=== PATIENT | male | born 1965 | race Caucasian/White ===

== ENCOUNTER 2016-11-25 11:37 | Observation (INO) | payer OTHER ==
--- NOTE | ~2016-11-25 | CR72 ---
[facility] A Service of [facility] RADIOLOGY TEXT RESULTS PATIENT: CANDICE TOVAR LOCATION: [facility] [id number] : 63 UNIT #: [id number] AGE: [address]: Shonna Puckett MD SEX: M ORDER DR: [id number] [facility] [address] [facility]. [place], [place] [address] [id number] MR#: [id number] Acc #: [id number] NAME: CANDICE TOVAR : 1965 SEX: M STUDY DATE/TIME: 11/25/2016 UNIT: [facility] ROOM: STUDY DESCRIPTION: CR Chest Single View Portable Attending Physician: Yair Benitez M.D. Ordering Physician: Ale Ha M.D. Primary Care Physician: [facility] MEDICAL IMAGING REPORT This report is preliminary unless electronic signature is present EXAM Chest portable 11/25/2016 1246 hours HISTORY Patient complains of shortness of air, lightheadedness, chest and left arm pain today. COMPARISON 10/31/2014 FINDINGS Single portable upright view demonstrates median sternotomy and CABG change. The heart size is within normal limits. There is a stable mildly tortuous aorta. Pulmonary vascularity is normal. The lungs are clear and there are no effusions. IMPRESSION No acute cardiopulmonary findings. Dictated by... Kiersten Henry M.D. THIS IS AN ELECTRONICALLY VERIFIED REPORT Kiersten Henry M.D. at 11/25/2016 2:30 PM Jack TD: 11/25/2016 14:05 JOB #: [id number] MEDICAL IMAGING REPORT Page 1 of 1 COPY
--- NOTE | ~2016-11-25 | HP ---
Unit #: [id number] #: [id number] Patient: CANDICE TOVAR [id number] [facility] [place]. [address] [place], [place] [address] [id number] I MR#: [id number] NAME: CANDICE TOVAR ROOM: 73509 Age: 51 Sex: M Admission Date: 11/25/2016 : 1965 Attending Physician: Shonna Puckett M.D. [facility] HISTORY AND PHYSICAL HISTORY OF PRESENT ILLNESS This is a 51-year-old white male who has a history of having an anterior wall DC back in 2012 and had a three-vessel CABG done at [facility]. He is also diabetic, hyperlipidemic, mildly obese, who came to the hospital today with complaints of an onset of pain in his neck, down into the left shoulder and down the left arm and also in the left upper scapular/back region. He said this is the same type of pain he had four years ago when he had his heart attack. He said he got a little short of breath and dizzy and diaphoretic. He sat down for a while. The pain was waxing and waning for a while and then he drove himself to the hospital. He had received an aspirin and nitroglycerin paste and his symptoms have eased off. His blood pressure was 115/69, heart rate 97, respirations 16. He is afebrile. His EKG shows some inferior Q waves, poor R-wave progression, nothing acute. His chest x-ray did not show anything acute. Patient will be admitted for further evaluation and workup. He denies any radiation into the substernal chest wall. He has not had any abdominal pain. No nausea, vomiting or diarrhea. No cough, fever or chills. He recently went to see his PCP last week and was doing fairly well. PAST MEDICAL HISTORY 1. Coronary artery disease, previous coronary artery bypass graft in 2012, had an anterior wall DC. 2. Diabetes mellitus type 2. 3. Hyperlipidemia. 4. Peripheral neuropathy. 5. Right fifth toe removed 10/2014 secondary to a diabetic wound. 6. Obesity. Weight is 254 pounds with a BMI of 33. 7. Nonsmoker. PAST SURGICAL HISTORY 1. Fifth toe removed back in 10/2014. 2. Three-vessel coronary artery bypass graft in 2012. HOME MEDICATIONS They are listed but dosage and frequency unavailable. 1. Glipizide. 2. Metformin. 3. Invokana. 4. Aspirin. 5. Gabapentin. ALLERGIES. Unit #: [id number] #: [id number] Patient: CANDICE TOVAR No known drug allergies. SOCIAL HISTORY Patient has been a lifelong nonsmoker. No alcohol or illicit drug abuse. FAMILY HISTORY His mother had an DC and coronary artery bypass graft and at 83. Father of other medical issues. An older sister has had three MIs and had coronary artery bypass graft. REVIEW OF SYSTEMS CONSTITUTIONAL: Denies fever or chills. No recent weight gain or weight loss. HEENT: Denies headache. Complained of some dizziness before arrival. Denies paroxysmal nocturnal dyspnea or orthopnea. PULMONARY: Denies cough, had some slight shortness of breath with the neck and shoulder pain. HEART: S1, S2. Regular rate and rhythm. No clicks, murmurs or rubs. LUNGS: Bilateral clear throughout. Slightly diminished. ABDOMEN: Obese, soft, nontender. EXTREMITIES: Pedal pulses are palpable. No pedal edema. DIAGNOSTIC STUDIES LABORATORY DATA: Glucose is 217, BUN 27, creatinine 2.0, eGFR is 37.3, sodium 135, potassium 3.8 and chloride 101, CO2 24, calcium is 10.3, total protein 7.2, albumin 3.7, total bilirubin is 1.2, AST is 16, ALT 10 and alkaline phosphatase is 58. WBC 5.9, hemoglobin 11.1, hematocrit 33.9 and platelets 191. Initial cardiac enzymes: CK-MB is 1.1, troponin less than 0.05. IMAGING: His chest x-ray preliminary report no active disease. CARDIOVASCULAR: EKG shows sinus tachycardia, heart rate is 104 beats per minute, poor R-wave progression, inferior Q waves, low voltage in inferior leads. IMPRESSION 1. Neck, left shoulder and left arm pain equivocal to unstable angina. 2. History of coronary artery disease, three vessel coronary artery bypass graft in 2012. 3. Diabetes mellitus type 2. 4. Hyperlipidemia. 5. Peripheral neuropathy. 6. 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 7. Chronic kidney disease. 8. Obesity, 254 pounds with a body mass index of 33. 9. Nonsmoker. PLAN 1. Continue to monitor cardiac enzymes and EKG. If they remain negative, may likely proceed with a Lexiscan Cardiolite stress test. Because of his chronic kidney disease his creatinine is now 2.0. If his cardiac enzymes are positive and/or if he continues to have further chest pain may need another heart catheterization. Would discuss with the patient risks and benefits at the time. Will keep the patient n.p.o. in the morning for possible testing. On exam there do not appear to be any signs or symptom of acute congestive heart failure. Unit #: [id number] #: [id number] Patient: CANDICE TOVAR 2. Continue patient on aspirin, nitroglycerin paste, add therapeutic Lovenox and a small dose of beta ant. 3. Discussed with the patient why he is not on a beta ant. He is not sure and also it may be because of making him hypotensive. 4. Will obtain a lipoid profile and TSH and evaluate. 5. The patient will be on Accu-Cheks a.c. and h.s. with low dose sliding scale. 6. Further recommendations pending per Dr. Puckett. Dictated by Lanie Coreas A.P.R.N. for Eric Baer/ivette TD: 11/25/2016 17:36 JOB #: [id number] HISTORY AND PHYSICAL Page 1 of 1 X Lanie Coreas APRN HISTORY AND PHYSICAL
--- NOTE | ~2016-11-25 | ST ---
Unit #: [id number] #: [id number] Patient: CANDICE TOVAR [id number] [facility]. [address] [address] [id number] I MR#: [id number] NAME: CANDICE TOVAR : 1965 SEX: M STUDY DATE/TIME: 11/26/2016 UNIT: [facility] ROOM: 571 STUDY DESCRIPTION: Stress test Attending Physician: Shonna Puckett M.D. Primary Care Physician: [facility] CARDIOLOGY REPORT EXAM EKG portion of Lexiscan Cardiolite stress test. REASON FOR EXAM Chest pain with history of coronary artery bypass grafting. DISCUSSION Baseline EKG reveals sinus rhythm with ventricular rate of 86 beats per minute. No acute ST or T wave changes noted. A total of 0.4 mg of Lexiscan was injected per protocol followed by Cardiolite. There were no complaints of chest pain. There were no sustained arrhythmias noted. There were no ST or T wave changes to suggest ischemia. The maximal heart rate was 111 beats per minute with a maximum blood pressure of 126/75 mmHg. The test was stopped due to protocol completion. IMPRESSION 1. Negative EKG portion of Lexiscan Cardiolite stress test. 2. There were no complaints of chest pain. 3. There were no sustained arrhythmias noted. 4. There were no ST or T wave changes to suggest ischemia. 5. Please correlate with Cardiolite images. Dictated by... Shahida Hall APRN for Eric Baer TD: 11/27/2016 07:49 JOB #: [id number] CARDIOLOGY REPORT Page 1 of 1 X CARDIOLOGY REPORT
--- NOTE | ~2016-11-25 | TH ---
Unit #: [id number] #: [id number] Patient: CANDICE TOVAR [id number] [address] [address] [id number] I MR#: [id number] NAME: CANDICE TOVAR : 1965 SEX: M STUDY DATE/TIME: 11/26/2016 UNIT: [facility] ROOM: 571 STUDY DESCRIPTION: Lexiscan stress test - Nuclear Attending Physician: Shonna Puckett M.D. Primary Care Physician: [facility] CARDIOLOGY REPORT PROCEDURE PERFORMED Lexiscan Cardiolite stress test - Nuclear portion. PROCEDURE Using technetium 99m-labeled Cardiolite, rest and stress SPECT images were obtained. Multiple SPECT images were obtained in various views, including horizontal and vertical long axis and short axis views of the left ventricle. Images were obtained by gated SPECT method. The patient was administered 12 mCi of Cardiolite at rest. The patient was administered 36 mCi of Cardiolite after Lexiscan infusion was completed. On the stress images, there is a medium sized area of severely decreased tracer uptake activity involving the lateral wall. The rest images show a smaller area of severely decreased tracer uptake activity in the lateral wall. Comparing the rest and stress images, there is suspicion for lateral wall myocardial infarction with laila-infarct ischemia. The left ventricular ejection fraction is calculated to be 59%. There is lateral wall hypokinesis and septal hypokinesis noted. CONCLUSION 1. Suspicion for medium sized area of lateral wall myocardial infarction with laila-infarct ischemia. 2. The left ventricular ejection fraction is calculated to be 59%. 3. There is septal and lateral wall hypokinesis noted. 4. Abnormal Lexiscan Cardiolite stress test. Clinical correlation is requested. Dictated by... Eric Baer/valerie TD: 11/26/2016 14:48 JOB #: [id number] Unit #: [id number] #: [id number] Patient: CANDICE TOVAR CARDIOLOGY REPORT Page 1 of 1 X Shonna Puckett MD <ELECTRONICALLY SIGNED> 01/11/17 1424 CARDIOLOGY REPORT
--- NOTE | ~2016-11-25 | EKG ---
PATIENT: CANDICE TOVAR UNIT #: [id number] Ventricular Rate: 104 BPM Atrial Rate: 104 BPM P-R Interval: 136 ms QRS Duration: 76 ms Q-T Interval: 342 ms QTC Calculation(Bezet): 449 ms P [place]: 25 degrees Calculated R [place]: -9 degrees Calculated T [place]: 37 degrees Diagnosis Line: Sinus tachycardia Diagnosis Line: Consider prior Inferior infarct , age Diagnosis Line: undetermined Diagnosis Line: Borderline ECG Diagnosis Line: When compared with ECG of 31-OCT-2014 19:42, Diagnosis Line: No significant change was found Diagnosis Line: Confirmed by FERMIN PURI MD ([id number]) on Diagnosis Line: 11/25/2016 10:52:04 PM INTERPRETING MD: ALBERT
--- NOTE | ~2016-11-25 | EKG ---
PATIENT: CANDICE TOVAR UNIT #: [id number] Ventricular Rate: 75 BPM Atrial Rate: 75 BPM P-R Interval: 152 ms QRS Duration: 84 ms Q-T Interval: 398 ms QTC Calculation(Bezet): 444 ms P [place]: 8 degrees Calculated R [place]: 2 degrees Calculated T [place]: 42 degrees Diagnosis Line: Normal sinus rhythm Diagnosis Line: Possible Inferior infarct (cited on or before Diagnosis Line: 25-NOV-2016) Diagnosis Line: Abnormal ECG Diagnosis Line: When compared with ECG of 25-NOV-2016 11:34, Diagnosis Line: No significant change was found Diagnosis Line: Confirmed by FERMIN PURI MD ([id number]) on Diagnosis Line: 11/26/2016 10:14:10 PM INTERPRETING MD: ALBERT
[~2016-11-25 11:37] MED LIST: ACETAMINOPHEN650 M1 PO; ALLERGY25 MG PO; ASPIRIN81 M2 PO; DICLOFENAC PO; FLORASTOR250 M1 PO; GLUCOTROL XL PO; HYDROCODONE-A1 UDTA2 PO; LIPITOR40 MG PO; METFORMIN HCL500 M1 PO; MICRONASE5 M2 PO; MOTRIN600 MG PO; NAPROSYN500 MG PO; ONDANSETRON HCL4 M1 PO; SENNA S TABLET1 TAB PO; VANCOCIN HCL2 GM IM
[2016-11-25 12:42] LABS: BASOPHIL# 0.1 X10e3 (0-0.3); EOSINOPHIL# 0.3 X10e3 (0-0.7); EOSINOPHIL% 4.5 % (0.0-7.0); HEMATOCRIT 33.9 % (38.0-50.0); HEMOGLOBIN 11.1 gm/dL (13.0-16.0); LYMPHOCYTE# 0.6 X10e3 (1.0-3.5); LYMPHOCYTE% 9.6 % (17.0-45.0); MEAN CELL VOLUME 81.3 FL (83-96); MEAN CORPUSCULAR HEMOGLOBIN 26.6 PG (28-34); MEAN CORPUSCULAR HGB CONC 32.7 g/dL (30-36); MEAN PLATELET VOLUME 8.4 FL (6.5-11.5); MONOCYTE# 0.6 X10e3 (0-1.0); MONOCYTE% 9.8 % (3.0-12.0); NEUTROPHIL# 4.4 X10e3 (1.5-7.1); NEUTROPHIL% 75.1 % (40-75); PLATELET COUNT 191 X10e3 (140-420); RED BLOOD COUNT 4.16 X10e (3.90-5.60); RED CELL DISTRIBUTION WIDTH 14.6 % (11.0-15.5); WHITE BLOOD COUNT 5.9 X10e3 (4.0-10.5)
[2016-11-25 12:43] LABS: DIFF IND NO
[2016-11-25 12:53] LABS: PROTHROMBIN TIME (PATIENT) 10.5 SECONDS (9.6-11.5)
[2016-11-25 13:13] LABS: ALBUMIN SERUM 3.7 g/dL (3.5-5.0); BILIRUBIN, DIRECT 0.1 mg/dL (0.0-0.2); BILIRUBIN,INDIRECT 1.1 mg/dL (0.0-0.9); BILIRUBIN,TOTAL 1.2 mg/dL (0.2-2.0); BUN/CREATININE RATIO 13.5; CALCIUM SERUM 10.3 mg/dL (8.4-10.2); GLOM FILT RATE Estimated 37.3 mL/min (>60); POTASSIUM 3.8 mmol/L (3.5-5.1); PROTEIN TOTAL SERUM 7.2 g/dL (6.0-8.3)
[2016-11-25 13:18] LABS: POC - CKMB 1.1 ng/mL (0.0-7.9); POC - TROPONIN <0.05 ng/mL (<=0.05)
[2016-11-25 14:48] LABS: POC - CKMB 1.7 ng/mL (0.0-7.9); POC - TROPONIN <0.05 ng/mL (<=0.05)
[2016-11-25] MEDS ORDERED: GLIPIZIDE ER10 MG PO (15:26)
[2016-11-25] MEDS ORDERED: INVOKANA300 MG PO (15:26)
[2016-11-25] MEDS ORDERED: ASPIRIN81 M2 PO (15:26)
[2016-11-25] MEDS ORDERED: PATIENT'S PHARMACY (15:26)
[2016-11-25] MEDS ORDERED: METFORMIN PO (15:27)
[2016-11-25] MEDS ORDERED: GABAPENTIN300 MG PO (15:27)
[2016-11-25 20:47] LABS: CK TOTAL 41 IU/L (36-174)
[2016-11-26 03:44] LABS: HEMATOCRIT 31.3 % (38.0-50.0); HEMOGLOBIN 10.3 gm/dL (13.0-16.0); MEAN CELL VOLUME 80.9 FL (83-96); MEAN CORPUSCULAR HEMOGLOBIN 26.6 PG (28-34); MEAN CORPUSCULAR HGB CONC 32.8 g/dL (30-36); MEAN PLATELET VOLUME 8.3 FL (6.5-11.5); RED BLOOD COUNT 3.87 X10e (3.90-5.60); WHITE BLOOD COUNT 5.7 X10e3 (4.0-10.5)
[2016-11-26 03:46] LABS: CK TOTAL 39 IU/L (36-174)
[2016-11-26 04:12] LABS: BUN/CREATININE RATIO 14.7; CALCIUM SERUM 9.1 mg/dL (8.4-10.2); CREATININE SERUM 1.7 mg/dL (0.6-1.4); GLOM FILT RATE Estimated 45.4 mL/min (>60); POTASSIUM 3.9 mmol/L (3.5-5.1)
[2016-11-26] MEDS ORDERED: METOPROLOL SUCC25 MG PO (15:06)
[2016-11-26] MEDS ORDERED: CLOPIDOGREL75 MG PO (15:06)
[2016-11-26] MEDS ORDERED: CRESTOR PO (15:09)
== END 2016-11-26 18:24 | disposition home or self-care (01) ==
LOC: CED 11:37 → C5C 14:15 → CEDOF 14:15 → CED 15:36 → C5C 18:56
PROVIDERS: Emergency Medicine; Internal Medicine Cardiovascular Disease
DX: R07.9 Chest pain, unspecified (principal); I25.10 Atherosclerotic heart disease of native coronary artery without angina pectoris; I25.2 Old myocardial infarction; Z95.1 Presence of aortocoronary bypass graft; E78.5 Hyperlipidemia, unspecified; E11.22 Type 2 diabetes mellitus with diabetic chronic kidney disease; N18.9 Chronic kidney disease, unspecified; D63.1 Anemia in chronic kidney disease; E66.9 Obesity, unspecified; I08.8 Other rheumatic multiple valve diseases
CPT/HCPCS: 36415; 71010; 78452; 80048; 80061; 80076; 82550; 82553; 82947; 84443; 84484; 85025; 85027; 85610; 85730; 93005; 93017; 93306; 96360; 96372; 99285; A9500; G0378; J1650; J2785